=== PATIENT | female | born 1950 | race Two or more races ===

== ENCOUNTER 2025-01-22 18:04 | Emergency (ER) | payer OTHER ==
[~2025-01-22] VITALS: Ht 160 cm; Wt 77.1 kg
[2025-01-22] MEDS ORDERED: TOPROL XL50 M1 PO (18:23)
[2025-01-22] MEDS ORDERED: COZAAR100 MG PO (18:23)
[2025-01-22] MEDS ORDERED: ELIQUIS5 MG PO (18:23)
[2025-01-22] MEDS ORDERED: EZALLOR SPRINKL10 MG PO (18:23)
[2025-01-22] MEDS ORDERED: AMLODIPINE-OLM1 EAC3 PO (18:23)
[2025-01-22 23:06] LABS: URINE APPEARANCE Clear; URINE BILIRRUBIN Negative (NEGATIVE); URINE BLOOD Negative; URINE COLOR Yellow; URINE GLUCOSE Negative (NEGATIVE); URINE KETONE Negative (NEGATIVE); URINE LEUKOCYTE Trace; URINE NITRATE Negative; URINE PROTEIN Negative (NEGATIVE); URINE UROBILINOGEN 0.2 E.U./dl
[2025-01-22 23:09] LABS: URINE BACTERIA 21.9 uL (0.0-1933); URINE EPITHELIAL CELLS 2.8 uL (0.0-38.8); URINE RBC 4.1 uL (0.0-20.8); URINE WBC 5.2 uL (0.0-23.2)
[2025-01-22 23:13] LABS: HEMATOCRIT 37.5 % (36.0-45.00); HEMOGLOBIN 12.7 g/dL (12.0-15.00); MEAN CELL VOLUME 89.2 fL (80.00-100.00); MEAN CORPUSCULAR HEMOGLOBIN 30.2 pg (27.00-32.0); MEAN CORPUSCULAR HGB CONC 33.8 g/dl (32.0-36.0); PLATELET COUNT 173 K/uL (150-450); RED CELL DISTRIBUTION WIDTH 13.2 % (11.5-14.5)
[2025-01-22 23:23] LABS: URINE CAST 0.44 uL (0.0-1.40)
== END 2025-01-23 01:25 | disposition home or self-care (01) ==
LOC: ER 18:07
DX: R51.9 Headache, unspecified (principal); R05.9 Cough, unspecified; Z20.822 Contact with and (suspected) exposure to COVID-19